=== PATIENT | female | born 1995 | race Asian ===

== ENCOUNTER 2021-06-07 13:16 | Outpatient (CLI) | payer OTHER | END 2021-06-07 23:59 | disposition home or self-care (01) | LOC: LAB.N 13:16 | PROVIDERS: ATTEND Family Medicine | DX: R05 Cough (principal); Z20.822 Contact with and (suspected) exposure to COVID-19 ==

== ENCOUNTER 2021-11-27 18:10 | Emergency (ER) | payer OTHER ==
[2021-11-27 18:50] VITALS: BP 129/90
--- NOTE | 2021-11-27 19:32 | ED Physician Documentation ---
History of Present Illness - Stated complaint Stated Complaint: C SYMPTOMS - Chief complaint Chief Complaint: General - Additonal information Additional information: 25-year-old female presents emergency department for evaluation of 4 days cough cold congestion. Some myalgias. No fevers. No loss of taste or smell. Patient is fully vaccinated. Denies any pertinent past medical history. Non- smoker. [employer] who is here for COVID-19 screening only. Review of Systems Constitutional: reports: Myalgias, Fatigue. denies: Fever Eyes: reports: Reviewed and negative Ears: reports: Reviewed and negative Nose: reports: Congestion Throat: reports: Reviewed and negative Cardiac: reports: Reviewed and negative Respiratory: reports: Cough GI: reports: Reviewed and negative : reports: Reviewed and negative Skin: reports: Reviewed and negative Musculoskeletal: reports: Reviewed and negative PD PAST MEDICAL HISTORY - Present Medications Home Medications: Ambulatory Orders Medication Instructions Recorded Confirmed No Known Home Medications 11/27/21 11/27/21 - Allergies Allergies/Adverse Reactions: Allergies Allergy/AdvReac Type Severity Reaction Status Date / Time No Known Drug Allergies Allergy Verified 11/27/21 18:50 PD ED PE NORMAL - General General: Alert and oriented X 3, No acute distress - HEENT HEENT: PERRL - Cardiac Cardiac: RRR, No murmur - Respiratory Respiratory: Clear bilaterally - Abdomen Abdomen: Normal bowel sounds, Soft, Non tender, Non distended - Back Back: No CVA TTP, No spinal TTP Results - Vitals Vitals: Vital Signs - 24 hr 11/27/21 18:45 Temperature 36.1 C L Heart Rate 89 Respiratory 16 Rate Blood Pressure 129/90 H O2 Saturation 98 Oxygen O2 Source Room air PD MEDICAL DECISION MAKING - ED course Complexity details: considered differential, d/w patient ED course: Well-appearing 25-year-old female presents emergency department for evaluation of cough cold and congestion that began 3 to 4 days ago. No fevers. No loss of taste or smell. Fully vaccinated for COVID-19 but is here for Covid screening given that she is active [employer]. Unremarkable cardiopulmonary auscultation as well as vital signs. No hypoxia or tachypnea. Emergent return precautions were discussed. Screen is pending. Departure - Departure Disposition: Home, Self Care Clinical Impression: Encounter for screening for COVID-19 Upper respiratory infection Qualifiers: URI type: unspecified viral URI Qualified Code(s): J06.9 - Acute upper respiratory infection, unspecified Condition: Stable Record reviewed to determine appropriate education?: Yes Comments: You have a Covid test pending. You need to self quarantine until the result is done and negative. Do not leave your house. Do not get near anybody. The results should be done in 48 to 72 hours. We will call with a positive result, the fastest way to get a negative result for confirmation though is to go to the hospital website at [email or web address], click on the my [facility] tab and sign up for the patient portal. If any friends or family get sick and would like to have a Covid test done, but do not have signs or symptoms that would necessitate being hospitalized, there are multiple local options for Covid testing. [facility] keeps an updated list of testing and vaccination options at [email or web address]
== END 2021-11-27 19:40 | disposition home or self-care (01) ==
LOC: ED 18:10
DX: U07.1 COVID-19 (principal); J06.9 Acute upper respiratory infection, unspecified
CPT/HCPCS: 99282; 99283